=== PATIENT | female | born 1965 | race American Indian/Alaskan Native ===

== ENCOUNTER 2016-11-03 16:17 | Emergency (ER) | payer MEDICAID ==
[2016-11-03 16:23] VITALS: TEMP 99.1
[2016-11-03 16:25] VITALS: RESP 18
--- NOTE | 2016-11-03 16:57 | ED PDOC ---
Arrival/HPI - General Chief Complaint: Back Pain Time Seen by Provider: 11/03/16 16:26 Historian: Patient - History of Present Illness Narrative History of Present Illness (Text): 11/03/16 16:54 Patient with past medical history of anemia, reports one week history of atraumatic intermittent pain in the L lower back, worse with movement, laying down and bending. Patient reports that she can not swallow pills, hence has not taken any medications for her symptoms. States she is currently following up with [facility] regarding her anemia, states she had a recent bone marrow biopsy (due to low WBC) done in December of last year which was within normal limits. Otherwise: (-) heavy lifting, (-) urinary symptoms, (-) paresthesias, ( -) weakness, (-) acute bowel or bladder dysfunction, (-) N/V, (-) abdominal pain , (-) fever. Has no history of prior back problem. Past Medical History - Provider Review Nursing Documentation Reviewed: Yes - Hematological/Oncological Hx Anemia: Yes - Psychiatric Hx Psychophysiologic Disorder: No Hx Substance Use: No - Surgical History Other/Comment: BONE MARROW BX Family/Social History - Physician Review Nursing Documentation Reviewed: Yes Family/Social History: No Known Family HX Smoking Status: Never Smoked Hx Alcohol Use: No Hx Substance Use: No Allergies/Home Meds Allergies/Adverse Reactions: Allergies No Known Allergies Allergy (Verified 11/03/16 16:19) Review of Systems - Review of Systems Constitutional: Normal. absent: Fatigue, Weight Change, Fevers Respiratory: Normal. absent: SOB, Cough, Sputum Cardiovascular: Normal. absent: Chest Pain, Palpitations, Edema Gastrointestinal: Normal. absent: Abdominal Pain, Vomiting, Appetite Changes Musculoskeletal: Normal, Back Pain. absent: Arthralgias, Neck Pain Skin: Normal. absent: Rash, Pruritis, Skin Lesions Physical Exam - Physical Exam Narrative Physical Exam (Text): 11/03/16 16:57 GENERAL APPEARANCE: Patient is awake, alert, oriented x 3, in mild painful distress. SKIN: Warm, dry; (-) cyanosis. EYES: (-) conjunctival pallor. ENMT: Mucous membranes moist. NECK: (-) tenderness, (-) stiffness, (-) lymphadenopathy. CHEST AND RESPIRATORY: (-) rales, (-) rhonchi, (-) wheezes; breath sounds equal bilaterally. HEART AND CARDIOVASCULAR: (-) irregularity; (-) murmur, (-) gallop. ABDOMEN AND GI: Soft; (-) tenderness; (-) palpable mass. BACK: (+) point tenderness to the L paralumbar area, (+) mild spasm, (-) direct bony tenderness, (-) deformity. Straight leg raising (-) bilaterally. EXTREMITIES: (-) deformity. Distal pulses good bilaterally. NEURO AND PSYCH: Mental status as above. Intact sensation bilaterally; normal strength in extension of the knees, plantar and dorsiflexion of the toes. DTRs symmetric. Vital Signs Temp Pulse Resp BP Pulse Ox 11/03/16 18:07 76 18 126/78 100 11/03/16 16:25 99.1 F 82 18 133/83 99 11/03/16 16:19 99.1 F 82 16 133/83 99 Medical Decision Making ED Course and Treatment: 11/03/16 16:58 50 yo F w/ past medical history of anemia, reports one week history of atraumatic intermittent pain in the L lower back, worse with movement, laying down and bending. Plan: - XR L spine - Uhcg - toradol 30 mg IM Uhcg (-) XR L spine: (-) fracture, (-) acute abnormality, as read by PA. XR results d/w the patient in great detail. Advised to take otc pain medication and Rx for flexeril. Otherwise was advised to f/u with the clinic in 1-2 days without fail. Return to the emergency room at any time for any new or worsening symptoms. Patient states she fully agrees with and understands discharge instructions. States that she agrees with the plan and disposition. Verbalized and repeated discharge instructions and plan. I have given the patient opportunity to ask any additional questions. - RAD Interpretation Radiology Orders: 11/03/16 16:45 LS SPINE WITH OBL > 18 YRS OLD [RAD] Stat - Medication Orders Current Medication Orders: Discontinued Medications Ketorolac Tromethamine (Toradol) 30 mg IM STAT STA Stop: 11/03/16 16:46 Last Admin: 11/03/16 17:31 Dose: 30 mg - PA / TYPE [employer] / Resident Statement MD/DO has reviewed & agrees with the documentation as recorded. Disposition/Present on Arrival - Present on Arrival Any Indicators Present on Arrival: No History of DVT/PE: No History of Uncontrolled Diabetes: No Urinary Catheter: No History of Decub. Ulcer: No History Surgical Site Infection Following: None - Disposition Have Diagnosis and Disposition been Completed?: Yes Diagnosis: Low back pain Disposition: HOME/ ROUTINE Disposition Time: 17:30 Patient Plan: Discharge Condition: STABLE Discharge Instructions (ExitCare): Acute Low Back Pain (ED) Print Language: TELUGU Additional Instructions: Thank you for letting us take care of you today. You were treated for low back pain. The emergency medical care you received today was directed at your acute symptoms. If you were prescribed any medication, please fill it and take as directed. It may take several days for your symptoms to resolve. Return to the Emergency Department if your symptoms worsen, do not improve, or if you have any other problems. Please contact your doctor in 2 days for re-evaluation and follow up / or call one of the physicians/clinics you have been referred to that are listed on the Patient Visit Information form that is included in your discharge packet. Bring any paperwork you were given at discharge with you along with any medications you are taking to your follow up visit. Our treatment cannot replace ongoing medical care by a primary care provider (PCP) outside of the emergency department. Thank you for allowing the [facility] team to be part of your care today. If you had an X-Ray : A Radiologist will review the ED reading if any change in treatment is needed we will contact you. Prescriptions: Cyclobenzaprine [Cyclobenzaprine HCl] 10 mg PO TID #15 tab Referrals: PCP,NO [Primary Care Provider] - Follow up with primary [facility] at [facility] [place], [place] [Outside] - Follow up with primary Forms: [employer] (Yakut), WORK NOTE
--- NOTE | 2016-11-03 17:43 | RAD ---
PROCEDURE: Radiographs of the Lumbar Spine. HISTORY: pain COMPARISON: None available. FINDINGS: BONES: Alignment appears satisfactory. No listhesis. No acute displaced fracture identified. DISC SPACES: Unremarkable. OTHER FINDINGS: Metallic umbilical jewelry. IMPRESSION: No acute displaced fracture subluxation identified.
[2016-11-03 18:08] VITALS: BP 126/78; PULSE 76; O2SAT 100
== END 2016-11-03 18:19 | disposition home or self-care (01) ==
LOC: ED 16:17
DX: M54.5 Low back pain (principal)
CPT/HCPCS: 72110; 96372; 99284; J1885